=== PATIENT | male | born 1950 | race Caucasian/White ===

== ENCOUNTER → 2017-10-30 | Outpatient (CLI) | payer MEDICARE ==
[2017-10-30 12:21] LABS: CREATININE 1.3 mg/dL (0.7-1.3); GFR 55.4
[2017-10-30 12:21] LABS: BLOOD UREA NITROGEN 19 mg/dL (8-26)
[2017-10-30] MEDS: IOHEXOL 300 MG/ML 100ML VIAL. IV (12:44)
== END | disposition home or self-care (01) ==
LOC: CT 11:57
DX: I82.493 Acute embolism and thrombosis of other specified deep vein of lower extremity, bilateral (principal); R91.8 Other nonspecific abnormal finding of lung field
CPT/HCPCS: 36415; 71275; 82565; 84520; 93970

== ENCOUNTER → 2017-11-11 | Outpatient (CLI) | payer MEDICARE | END | disposition home or self-care (01) | LOC: KCIC US 11:59 | DX: N28.89 Other specified disorders of kidney and ureter (principal) | CPT/HCPCS: 76770 ==

== ENCOUNTER → 2017-11-25 | Outpatient (CLI) | payer OTHER, MEDICARE | END | disposition home or self-care (01) | LOC: KCIC CT 09:45 | DX: E04.1 Nontoxic single thyroid nodule (principal); M47.894 Other spondylosis, thoracic region; R91.8 Other nonspecific abnormal finding of lung field | CPT/HCPCS: 71250 ==

== ENCOUNTER → 2018-10-16 | Outpatient (CLI) | payer MEDICARE ==
--- NOTE | 2018-10-16 12:26 | RAD ---
Left lower extremity venous ultrasound, 10/16/2018: HISTORY: Edema, history of DVT Duplex evaluation of the deep veins in the left lower extremity was performed including grayscale, color-flow and spectral Doppler analysis. The left common femoral vein is widely patent. There is mural filling defects in the left superficial femoral and popliteal veins there is internal blood flow. The appearance is that of nonocclusive thrombus. This extends into the upper aspects of the peroneal and posterior tibial veins in the lower legs. These findings are new since the available comparison exam of 10/30/2017. Reportedly the patient is currently on blood thinners due to known recent DVT. Correlation with any available interval study is suggested to evaluate progression or regression. A 4.7 x 2.2 x 3.2 cm fluid collection in the popliteal fossa is compatible with a Charles's cyst. IMPRESSION: 1. Extensive nonocclusive deep vein thrombosis in the left lower extremity as described above. 2. Moderate sized popliteal cyst. Electronically signed by: Bigg Green MD (10/16/2018 12:23 PM) [facility]
== END | disposition home or self-care (01) ==
LOC: US 09:25
PROVIDERS: ATTEND Family Medicine
DX: I82.402 Acute embolism and thrombosis of unspecified deep veins of left lower extremity (principal); M71.22 Synovial cyst of popliteal space [Baker], left knee; Z86.718 Personal history of other venous thrombosis and embolism
CPT/HCPCS: 93971

== ENCOUNTER → 2018-12-26 | Outpatient (CLI) | payer MEDICARE ==
--- NOTE | 2018-12-26 13:20 | KCIC ---
EXAM: Lower extremity arterial Doppler sonogram with ankle-brachial indices (LUIS M). HISTORY: Bilateral lower extremity pain. TECHNIQUE: Doppler sonographic evaluation of the lower extremities was performed and pressure readings were assessed. FINDINGS: Right brachial pressure: 152 mmHg Left brachial pressure: 150 mmHg Right ankle pressure: 154 mmHg Right LUIS M: 1.01 Left ankle pressure: 93 mmHg Left LUIS M: 0.61 IMPRESSION: 1. Decreased left LUIS M of 0.61, consistent with moderate arterial disease. 2. Normal right LUIS M. Electronically signed by: Savanna Ferrera MD (12/26/2018 1:17 PM) [place] [id number]
== END | disposition home or self-care (01) ==
LOC: KCIC US 11:36
PROVIDERS: ATTEND Family Medicine
DX: I82.512 Chronic embolism and thrombosis of left femoral vein (principal); I82.532 Chronic embolism and thrombosis of left popliteal vein; Z79.01 Long term (current) use of anticoagulants
CPT/HCPCS: 93922

== ENCOUNTER → 2019-01-01 | Outpatient (CLI) | payer MEDICARE ==
[~2019-01-01] MED LIST: CONTRAST GIVEN. MC PRN; IOHEXOL 350 MG/ML 100 ML VIAL. IV ONE; LOSA100T14 PO; TIZA4TAB2 PO; WARF10TA40 PO
[2019-01-01 08:37] LABS: CREATININE 1.1 mg/dL (0.7-1.3); GFR 66.8
--- NOTE | 2019-01-02 10:51 | RAD ---
CTA of the abdomen and pelvis with bilateral lower extremity runoffs, compared to LUIS M examination dated 12/26/2018 for peripheral arterial disease, history of bilateral DVT. TECHNIQUE: Contiguous helical 5 mm axial images are obtained from the apex of diaphragm to the pelvic floor following administration of IV contrast in the arterial phase. Sagittal and coronal metastases are evaluated as were 3-D volume rendered images. Nonvascular findings: Lung bases are clear. Heart size within normal limits. No suspicious osteoblastic or osteolytic bone lesions are evident. There is degenerative change at L1-2 with vacuum phenomenon. Evaluation of the solid organ parenchyma is somewhat limited by arterial phase of contrast enhancement, however there are no gross abnormalities involving the liver, spleen, pancreas, bilateral adrenal glands, or left kidney. There is a 9 mm exophytic lesion arising from the posterior midpole of the right kidney on axial image #25 with Hounsfield units of 63. This may represent a hyperdense cyst versus enhancing solid lesion, and more complete evaluation with three-phase CT scan or MRI is recommended. Prostate is enlarged. Urinary bladder is grossly unremarkable. No free or loculated fluid collections are seen within the abdomen or pelvis. No suspicious mesenteric or retroperitoneal adenopathy is seen, though there are several small lymph nodes throughout the mesentery which may be normal. There is been a prior cholecystectomy. No areas of gross bowel wall thickening or bowel dilatation. Evaluation of the bowel is limited by lack of oral contrast. The appendix is identified and appears normal. Bilateral popliteal cysts are present. Vascular findings: The aorta is nonaneurysmal. There is moderate aortoiliac and mesenteric artery atherosclerosis with no significant stenoses identified. There are paired left renal arteries which appear patent, though the ostium of the superior most artery is not seen to advantage with these 5 mm thick slices. No iliac artery aneurysms are seen. There is multifocal atherosclerosis throughout the iliofemoral arteries bilaterally. On the right, the iliac arteries, common femoral artery, superficial femoral artery, popliteal artery and runoff vessels are all widely patent, with no significant stenoses definitely identified. On the left, the iliac arteries, and common femoral artery are widely patent. Within the midportion of the left superficial femoral artery, there is a 7 cm occlusion which is reconstituted distally by branches of the profunda femoris artery which is widely patent. The distal SFA, popliteal artery, and runoff vessels are all patent, with mild multifocal atherosclerosis and no clinically significant stenoses. IMPRESSION: 1. 7 cm left SFA occlusion, with intact runoff vessels. Angiography and attempted endovascular recanalization is a reasonable consideration. 2. 9 mm exophytic right renal lesion which is suspicious for renal cell carcinoma, though this could represent a hyperdense cyst. Further evaluation with three-phase CT scan of the abdomen and/or MRI of the abdomen is recommended for clarity. 2. Bilateral popliteal cysts. Electronically signed by: Tomy Jackson MD (01/02/2019 10:48 AM) [id number]
== END | disposition home or self-care (01) ==
LOC: CT 08:08
PROVIDERS: ATTEND Family Medicine
DX: M71.22 Synovial cyst of popliteal space [Baker], left knee (principal); M71.21 Synovial cyst of popliteal space [Baker], right knee; I70.8 Atherosclerosis of other arteries; I70.202 Unspecified atherosclerosis of native arteries of extremities, left leg; Z90.49 Acquired absence of other specified parts of digestive tract; Z86.718 Personal history of other venous thrombosis and embolism
CPT/HCPCS: 36415; 75635; 82565; 84520; Q9967

== ENCOUNTER → 2019-01-15 | Outpatient (CLI) | payer MEDICARE ==
[~2019-01-15] MED LIST changes: -CONTRAST GIVEN. MC PRN; +GADOTERATE 5 MMOL/10ML VIAL. IVP ONE; -IOHEXOL 350 MG/ML 100 ML VIAL. IV ONE
--- NOTE | 2019-01-15 16:18 | KCIC ---
Indication: Renal lesion. TECHNIQUE: Multiplanar multisequence MRI of the abdomen without and with IV contrast. COMPARISON: CT of chest from 10/30/2017. FINDINGS: Heart is normal in size. No pericardial or pleural effusion. Diffuse hepatic steatosis. Liver is normal in morphology. No intra or extrahepatic biliary duct dilation. Status post cholecystectomy. Intrinsic T1 signal is preserved in the pancreas. No focal pancreatic lesion. Adrenal glands demonstrate no nodularity. No hydronephrosis. There is a partially exophytic posterior interpolar renal cortex base lesion measuring 1.0 x 0.8 cm which is too small to characterize its enhancement characteristics. This lesion used to measure 1.1 x 1[address] chest from 10/30/2017. No enlarged retroperitoneal lymph nodes. No enhancing bony lesion. Visualized bowel demonstrates no obstruction. IMPRESSION: 1. Too small to accurately characterize solid lesion in the posterior interpolar right kidney but stable from previous CT chest from 10/30/2017. The lack of interval growth suggests either a benign lesion or slow growing papillary type RCC. Short-term follow-up with MRI abdomen with IV contrast is recommended in 3-4 months. 2. Hepatic steatosis. Electronically signed by: Rick Castillo DO (01/15/2019 4:15 PM) [id number]
== END | disposition home or self-care (01) ==
LOC: KCIC MRI 11:51
PROVIDERS: ATTEND Family Medicine
DX: K76.0 Fatty (change of) liver, not elsewhere classified (principal); N28.9 Disorder of kidney and ureter, unspecified; I10 Essential (primary) hypertension; Z90.49 Acquired absence of other specified parts of digestive tract; Z79.01 Long term (current) use of anticoagulants
CPT/HCPCS: 74183; A9575

== ENCOUNTER → 2019-12-15 | Outpatient (CLI) | payer MEDICARE ==
[~2019-12-15] MED LIST changes: -GADOTERATE 5 MMOL/10ML VIAL. IVP ONE
--- NOTE | 2019-12-15 17:24 | KCIC ---
HIP RIGHT 2 VIEW History: Right hip pain for over one year Comparison: None. Findings: 2 views of the right hip are submitted. There is moderate to severe osteoarthritic change of the right hip greater laterally. No acute fracture or dislocation is identified. Impression: 1. There is osteoarthritic change of the right hip. Electronically signed by: Sahil Thompson MD (12/15/2019 5:21 PM) [id number]
== END | disposition home or self-care (01) ==
LOC: KCIC 15:01
PROVIDERS: ATTEND Family Medicine
DX: M16.11 Unilateral primary osteoarthritis, right hip (principal)
CPT/HCPCS: 73502